=== PATIENT | male | born 1975 | race Caucasian/White ===

== ENCOUNTER 2017-06-13 22:56 | Emergency (ER) | payer BC ==
[~2017-06-13] VITALS: Ht 177.8 cm; Wt 92.9 kg
[~2017-06-13 22:56] MED LIST: KEFLEX500 MG PO; MOTRIN800 MG PO; MUSCLE RELAX
[2017-06-14] MEDS ORDERED: MAXALT5 MG PO (01:58)
[2017-06-14 02:06] VITALS: BP 122/84
== END 2017-06-14 02:08 | disposition home or self-care (01) ==
LOC: EME 22:56
DX: G43.909 Migraine, unspecified, not intractable, without status migrainosus (principal); Z87.891 Personal history of nicotine dependence
CPT/HCPCS: 99281; 99285; J0780; J1200; J3030; J7030